=== PATIENT | male | born 1955 | race African-American/Black ===

== ENCOUNTER 2017-12-20 03:41 | Emergency (ER) | payer OTHER ==
[~2017-12-20] VITALS: Ht 188 cm; Wt 99.8 kg
[2017-12-20 03:49] VITALS: BP 130/70
--- NOTE | 2017-12-20 03:56 | Emergency Room Report ---
History of Present Illness General Chief Complaint: General Complaint Source: Patient Present Illness HPI This is a 62-year-old male with no past medical history. He presents with chief complaint of generalized body pain. He [address] Initially he refuse to give any information. Said he has no complaint other than 1 to go to the hospital. Here when I told him that he has to give a chief complaint in order to be checked in. He then said that he is hurting all over from head to toe. Onset an hour ago. Denies any other complaint. No nausea no vomiting. No fever or chills. No cough or Congestion. Allergies: Coded Allergies: No Known Allergies (Unverified , 12/20/17) Patient History Past Medical History: see triage record, old chart reviewed Past Surgical History: none Pertinent Family History: none Social History: Denies: smoking Immunizations: other Reviewed Nursing Documentation: PMH: Agreed; PSxH: Agreed Nursing Documentation-PMH History Of Psychiatric Problem: Yes - DEPRESSION Review of Systems Eye: Denies: eye pain, blurred vision ENT: Denies: ear pain, nose congestion, throat swelling Respiratory: Denies: cough, shortness of breath Cardiovascular: Denies: chest pain, palpitations Gastrointestinal: Denies: abdominal pain, diarrhea, nausea, vomiting Musculoskeletal: Denies: back pain, joint pain Skin: Denies: rash Neurological: Denies: headache, numbness Endocrine: Denies: increased thirst, increased urine Hematologic/Lymphatic: Denies: easy bruising All Other Systems: negative except mentioned in HPI Physical Exam Vital Signs Date Time Temp Pulse Resp B/P (MAP) Pulse Ox O2 Delivery O2 Flow Rate FiO2 12/20/17 03:43 97.8 68 16 130/70 95 Room Air 97.9 vitals normal Sp02 EP Interpretation: reviewed, normal General Appearance: well appearing, no apparent distress, alert Head: normocephalic, atraumatic Eyes: bilateral eye PERRL, bilateral eye EOMI ENT: hearing grossly normal, normal pharynx Neck: full range of motion, supple, no meningismus Respiratory: chest non-tender, lungs clear, normal breath sounds Cardiovascular #1: regular rate, rhythm, no murmur Gastrointestinal: normal bowel sounds, non tender, no mass, no organomegaly, no bruit, non-distended Musculoskeletal: back normal, gait/station normal, normal range of motion Psychiatric: mood/affect normal Skin: warm/dry Medical Decision Making Diagnostic Impression: Primary Impression: Myalgia ER Course Patient complaining of generalize myalgia. I suspect he does want a place to stay for the night. He denies suicidal thoughts or homicidal thought. On physical exam no evidence of any abnormality. We'll discharge home. Last Vital Signs Date Time Temp Pulse Resp B/P (MAP) Pulse Ox O2 Delivery O2 Flow Rate FiO2 12/20/17 03:49 97.9 68 16 130/70 95 Room Air 97.9 Status: unchanged Disposition: HOME, SELF-CARE Condition: Stable Additional Instructions: Follow-up your DrYusef in 7 days. Return if symptom worsen. FRANCISCA HAN M.D. Dec 20, 2017 03:56
[2017-12-20] MEDS ORDERED: UNOBMED (03:57)
[2017-12-20 03:59] VITALS: BP 130/70
== END 2017-12-20 04:00 | disposition home or self-care (01) ==
LOC: EDBD 03:41 → EMR 03:55
DX: M79.1 Myalgia (principal); F32.9 Major depressive disorder, single episode, unspecified
CPT/HCPCS: 99282